=== PATIENT | female | born 1995 | race Caucasian/White ===

== ENCOUNTER 2019-09-07 03:23 | Emergency (ER) | payer MEDICAID ==
[2019-09-07] MEDS ORDERED: ONDANSETRON HCL INJ/PF 4 MG/2 ML SDV IV ONE (03:45)
[2019-09-07] MEDS ORDERED: NORMAL SALINE 1000 ML 1,000 ML IV ONE ×2 (03:45→04:42)
[2019-09-07 04:14] LABS: ABSOLUTE BASOPHILS # (AUTO) 0.1 10^3/uL (0.0-0.2); ABSOLUTE EOSINOPHILS # (AUTO) 0.1 10^3/uL (0.0-0.6); ABSOLUTE LYMPHOCYTES (AUTO) 2.1 10^3/uL (0.5-4.7); ABSOLUTE MONOCYTES (AUTO) 0.8 10^3/uL (0.1-1.4); BASOPHILS % (AUTO) 0.7 % (0-2); EOSINOPHILS % (AUTO) 0.8 % (0-6); HEMATOCRIT 43.4 % (36.0-47.0); HEMOGLOBIN 14.7 g/dL (12.0-15.5); LYMPHOCYTES % (AUTO) 16.3 % (13-45); MEAN CORPUSCULAR HEMOGLOBIN 30.2 pg (27.0-33.4); MEAN CORPUSCULAR HGB CONC 33.8 g/dL (32.0-36.0); MEAN CORPUSCULAR VOLUME 89 fl (80-97); MONOCYTES % (AUTO) 5.8 % (3-13); PLATELET COUNT 337 10^3/uL (150-450); RED BLOOD COUNT 4.87 10^6/uL (3.72-5.28); RED CELL DISTRIBUTION WIDTH 13.5 % (11.5-14.0); SEGMENTED NEUTROPHILS % (AUTO) 76.4 % (42-78); TOTAL CELLS COUNTED % (AUTO) 100 %; WHITE BLOOD COUNT 13.1 10^3/uL (4.0-10.5)
[2019-09-07 04:36] LABS: ALBUMIN 4.9 g/dL (3.5-5.0); ALKALINE PHOSPHATASE 135 U/L (38-126); ANION GAP 17 (5-19); ASPARTATE AMINO TRANSFERASE 24 U/L (14-36); BILIRUBIN,DIRECT 0.3 mg/dL (0.0-0.4); BILIRUBIN,TOTAL 0.3 mg/dL (0.2-1.3); BLOOD UREA NITROGEN 11 mg/dL (7-20); CALCIUM 9.8 mg/dL (8.4-10.2); CARBON DIOXIDE 24 mmol/L (22-30); CHLORIDE 109 mmol/L (98-107); GLUCOSE 117 mg/dL (75-110); POTASSIUM 4.3 mmol/L (3.6-5.0); TOTAL PROTEIN 8.8 g/dL (6.3-8.2)
--- NOTE | 2019-09-07 04:44 | ER Document Report ---
ED General - General Chief Complaint: Nausea/Vomiting Stated Complaint: VOMITING Time Seen by Provider: 09/07/19 04:36 Notes: Patient is a 24-year-old female that comes emergency department for chief complaint of alcohol intoxication and vomiting. Patient reports drinking 2 margaritas at dinner and then going to the club and drinking several [place] ice teas. After this she started to vomit, she vomited 5 times. She denies abdominal pain in particular, she denies chest pain, she denies any complaints currently. Boyfriend is at bedside and helping with the details. Patient is on medications for anxiety/depression, she has an IUD in place, no other past medical history reported. Patient states she occasionally smokes marijuana, denies recreational drugs otherwise. - Related Data Allergies/Adverse Reactions: No Known Allergies Allergy (Unverified 09/07/19 03:53) Home Medications: unable to recall all meds and doses Past Medical History - General Information source: Patient - Social History Smoking Status: Former Smoker Frequency of alcohol use: Occasional Drug Abuse: Marijuana Lives with: Family Family History: Reviewed & Not Pertinent Patient has suicidal ideation: No Patient has homicidal ideation: No Psychiatric Medical History: Reports: Hx Depression Past Surgical History: Reports: Hx Section - Immunizations Immunizations up to date: Yes Hx Diphtheria, Pertussis, Tetanus Vaccination: Yes Review of Systems - Review of Systems Constitutional: No symptoms reported EENT: No symptoms reported Cardiovascular: No symptoms reported Respiratory: No symptoms reported Gastrointestinal: See HPI Genitourinary: No symptoms reported Female Genitourinary: No symptoms reported Musculoskeletal: No symptoms reported Skin: No symptoms reported Hematologic/Lymphatic: No symptoms reported Neurological/Psychological: See HPI Physical Exam - Vital signs Vitals: Resp 19 09/07/19 03:35 - Notes Notes: GENERAL: Patient appears slightly intoxicated, slurring some of her words, however she is still awake and cooperative HEAD: Normocephalic, atraumatic. EYES: Pupils equal, round, and reactive to light. Extraocular movements intact. ENT: Oral mucosa dry, tongue midline. Oropharynx unremarkable. Airway patent. Nares patent, no nasal septal hematoma, TM's intact. NECK: Full range of motion. Supple. Trachea midline. LUNGS: Clear to auscultation bilaterally, no wheezes, rales, or rhonchi. No respiratory distress. HEART: Regular rate and rhythm. No murmur ABDOMEN: Soft, non-tender. Non-distended. Bowel sounds present in all 4 quadrants. EXTREMITIES: Moves all 4 extremities spontaneously. No edema, normal radial and dorsalis pedis pulses bilaterally. No cyanosis. BACK: no cervical, thoracic, lumbar midline tenderness. No saddle anesthesia, normal distal neurovascular exam. Moves all extremities in full range of motion. NEUROLOGICAL: Alert and oriented x2 (confused about details of events). Mildly slurred speech. Cranial nerves II through XII grossly intact. PSYCH: Normal affect, normal mood. SKIN: Warm, dry, normal turgor. No rashes or lesions noted. Course - Re-evaluation Re-evalutation: CBC shows mild leukocytosis, unremarkable otherwise. Chemistry nonspecific. Alcohol is elevated. negative. Patient actually has a soft benign abdomen. After IV fluids, nausea medication she states she feels much better. She tolerated p.o. medications and fluids without any difficulty. She started getting nauseated again but after re-medicating this resolved. Patient states she feels much better and was ready to go home. She is here with her sig nificant other. Discussed recommendations, follow-up, return precautions. They state understanding and agreement. Stable and asymptomatic at time of discharge. - Vital Signs Vital signs: Temp Pulse Resp BP Pulse Ox 98 F 118 H 14 119/89 H 100 09/07/19 03:40 09/07/19 03:40 09/07/19 07:00 09/07/19 07:30 09/07/19 07:00 - Laboratory Result Diagrams: 09/07/19 03:40 09/07/19 03:40 Laboratory results interpreted by me: 09/07/19 09/07/19 03:40 03:40 WBC 13.1 H Absolute Neuts (auto) 10.0 H Sodium 149.6 H Chloride 109 H Glucose 117 H Alkaline Phosphatase 135 H Total Protein 8.8 H Discharge - Discharge Clinical Impression: Vomiting Qualifiers: Vomiting type: unspecified Vomiting Intractability: non-intractable Nausea presence: with nausea Qualified Code(s): R11.2 - Nausea with vomiting, unspecified Alcohol intoxication Qualifiers: Complication of substance-induced condition: with unspecified complication Qualified Code(s): F10.929 - Alcohol use, unspecified with intoxication, unspecified Condition: Stable Disposition: HOME, SELF-CARE Additional Instructions: Avoid drinking alcohol to intoxication. Because of the gastritis caused by the alcohol I recommend a very bland diet initially, drink plenty fluids, take the Zofran if needed for nausea, famotidine to help recovery. Follow-up with primary care. Return for any concerning or worsening symptoms including uncontrolled vomiting, developing abdominal pain, difficulty breathing, or any other concerning or worsening symptoms. Prescriptions: Famotidine [Pepcid 20 mg Tablet] 20 mg PO BID #12 tablet Ondansetron [Zofran Odt 4 mg Tablet] 1 - 2 tab PO Q4H PRN #15 tab.rapdis PRN Reason: For Nausea/Vomiting Forms: Return to Work, Treatment of Relative/Child
[2019-09-07] MEDS ORDERED: SUCRALFATE 1 GM TABLET PO ONE (05:33)
[2019-09-07] MEDS ORDERED: FAMOTIDINE 20 MG TABLET PO ONE (05:33)
[2019-09-07] MEDS ORDERED: PROMETHAZINE HCL 25 MG TABLET PO ONE (05:33)
[2019-09-07] MEDS ORDERED: RINGERS SOLUTION,LACTATED 1,000 ML IV ONE (06:14)
[2019-09-07] MEDS ORDERED: DIPHENHYDRAMINE HCL 50 MG/ML VIAL IV ONE (06:31)
[2019-09-07] MEDS: PROMETHAZINE HCL INJ 25 MG/1 ML VIAL IM ONE ×2 (06:45→07:01)
[2019-09-07 07:33] VITALS: BP 119/89
== END 2019-09-07 07:38 | disposition home or self-care (01) ==
LOC: ER 03:23
DX: F10.129 Alcohol abuse with intoxication, unspecified (principal); R11.2 Nausea with vomiting, unspecified; D72.829 Elevated white blood cell count, unspecified; F12.10 Cannabis abuse, uncomplicated; F32.9 Major depressive disorder, single episode, unspecified; F41.9 Anxiety disorder, unspecified; Z79.899 Other long term (current) drug therapy; Z97.5 Presence of (intrauterine) contraceptive device; Z87.891 Personal history of nicotine dependence
CPT/HCPCS: 99284; 96361; 96374; 96375; 36415; 80307; 83690; 84703; 85025; 80053; J3490 ×3; J1200; J2405; J7030; J7120; J2550